=== PATIENT | male | born 1960 | race Caucasian/White ===

== ENCOUNTER 2024-05-25 09:53 | Inpatient (IN) | payer OTHER ==
[2024-05-22 15:04] LABS: BILIRUBIN,URINE NEGATIVE (Neg); CLARITY,URINE CLEAR (Clear); COLOR,URINE STRAW (Yellow); GLUCOSE, URINE NEGATIVE (Neg); KETONES,URINE NEGATIVE (Neg); LEUKOCYTE ESTERASE ,URINE NEGATIVE (Neg); NITRITES, URINE NEGATIVE (Neg); OCCULT BLOOD,URINE NEGATIVE (Neg); PROTEIN,URINE NEGATIVE (Neg); UROBILINOGEN,URINE 0.2 E.U/dL (0.2-1.0)
[2024-05-22 15:05] LABS: UA COLLECTION TYPE CLN CATCH MIDSTREAM
[2024-05-22 15:08] LABS: BASOPHILS % (AUTO) 0.3 % (0-1); EOSINOPHILS # (AUTO) 0.2 X10'3 (0-0.9); EOSINOPHILS % (AUTO) 2.6 % (0-6); HEMATOCRIT 42.2 % (42.0-52.0); LYMPHOCYTES # (AUTO) 1.9 X10'3 (1.1-4.8); LYMPHOCYTES % (AUTO) 31.8 % (21-51); MEAN CORPUSCULAR HGB CONC 33.2 g/dL (33.0-36.5); MEAN CORPUSCULAR VOLUME 90.5 FL (78-98); MEAN PLATELET VOLUME 8.7 FL (7.4-10.4); MONOCYTES # (AUTO) 0.5 X10'3 (0-0.9); MONOCYTES % (AUTO) 8.4 % (2-12); NEUTROPHILS # (AUTO) 3.3 X10'3 (1.8-7.7); NEUTROPHILS % (AUTO) 56.9 % (42-75); PLATELET COUNT 147 X10'3 (140-440); RED BLOOD COUNT 4.67 X10'6 (4.70-6.10); RED CELL DISTRIBUTION WIDTH 13.8 % (11.5-14.5); WHITE BLOOD COUNT 5.9 X10'3 (4.5-11.0)
[2024-05-22 15:17] LABS: ALANINE AMINOTRANSFERASE 19 U/L (12-78); ALBUMIN 3.4 G/DL (3.4-5.0); ALBUMIN/GLOBULIN RATIO 0.9 (1.1-1.5); ALKALINE PHOSPHATASE 68 IU/L (46-116); ANION GAP 4 (8-16); ASPARTATE AMINO TRANSFERASE 13 U/L (10-37); BILIRUBIN,TOTAL 0.4 MG/DL (0.1-1.0); BLOOD UREA NITROGEN 17 MG/DL (7-18); BUN/CREATININE RATIO 19.5 (10.0-20.0); CALCIUM 9.3 MG/DL (8.5-10.1); CHLORIDE 103 MMOL/L (99-107); CREATININE 0.87 MG/DL (0.60-1.10); GLUCOSE 101 MG/DL (70-104); HEMOGLOBIN A1C 5.8 % (4.5-6.2); POTASSIUM 4.1 MMOL/L (3.5-5.1); SODIUM 136 MMOL/L (135-145); TOTAL CARBON DIOXIDE 28.7 MMOL/L (24-32); eGFR 89 ML/MIN
[2024-05-25] VITALS (18 sets, daily range): BP systolic 122–159; BP diastolic 58–100; PULSE 61–78; RESP 12–19; TEMP 97.1–98.3; O2SAT 93–99
[~2024-05-25] VITALS: Ht 177.8 cm; Wt 119.9 kg
[2024-05-25] MEDS: ceFOXitin sod/dextrose 2g/50ml 50 ML IV ONE (05:30)
[~2024-05-25 09:53] MED LIST: ASCO100031 PO; CHOL10006 PO; KRIL500C PO; UBID200C18 PO; [UNRECOGNIZED DRUG - CODE] PO
[2024-05-25] MEDS: famotidine 20mg tablet PO ONE (10:56)
[2024-05-25] MEDS ORDERED: povidone-iodine 120ml topical solution TP ONE (11:00)
[2024-05-25] MEDS: heparin, porcine 5000 units/ml vial SQ ONE (11:04)
[2024-05-25] MEDS: metroNIDAZOLE-Flagyl 500mg/NS 100ML IVPB IV ONE (11:07)
[2024-05-25] MEDS: ringers solution, lacted 1,000 ML IV SCH ×2 (11:09→18:55)
[2024-05-25] MEDS ORDERED: CefTRIAXone 2000mg inj ONE (11:11)
[2024-05-25] MEDS ORDERED: tobramycin 40mg/ml inj ONE (11:11)
[2024-05-25] MEDS ORDERED: LIDOcaine 1% W/epiNEPHrine 1:100,000 20ml vial ONE (11:11)
[2024-05-25] MEDS ORDERED: BUPIVAcaine 2.5mg/ml inj 50ml vial (contains preservative) ONE (11:11)
[2024-05-25] MEDS ORDERED: morphine 2 MG/ML inj. syringe IV PRN (12:55)
[2024-05-25] MEDS ORDERED: hydrALAZINE 20mg/ml inj. IV PRN (12:55)
[2024-05-25] MEDS ORDERED: ondansetron/PF 4mg/2ml inj IV PRN ×2 (12:55→18:50)
[2024-05-25] MEDS ORDERED: meperidine/PF 25mg/ml syringe IV PRN ×3 (12:55)
[2024-05-25] MEDS ORDERED: morphine 4 MG/ML inj SYRINge IV PRN (12:55)
[2024-05-25] MEDS ORDERED: labetalol 20mg/4ml (5mg/ml) syringe IV PRN (12:55)
[2024-05-25] MEDS ORDERED: proCHLORperazine 10 MG/2 ml inj IV PRN (12:55)
[2024-05-25] MEDS ORDERED: midazolam 1 mg/ML 2ml injection ONE (13:27)
[2024-05-25] MEDS ORDERED: sevoflurane 250ml liquid IH ONE (13:28)
[2024-05-25] MEDS ORDERED: fentaNYL /PF 50mcg/ml 5ml ampule ONE (13:31)
[2024-05-25] MEDS: BUPIVAcaine 2.5mg/ml inj 50ml vial (contains preservative) SQ ONE (14:18)
[2024-05-25] MEDS ORDERED: rocuronium 10mg/ml inj IV ONE ×2 (14:36)
[2024-05-25] MEDS ORDERED: ondansetron/PF 4mg/2ml inj ONE (14:36)
[2024-05-25] MEDS ORDERED: LIDOcaine 2% (20mg/ml) 5ml vial ONE (14:37)
[2024-05-25] MEDS ORDERED: propofol inj 20 ML IV ONE (14:37)
[2024-05-25] MEDS ORDERED: fentaNYL/PF 50MCG/1 ML 2ML syringe ONE (15:58)
[2024-05-25] MEDS ORDERED: INDOCYANINE GREEN 25 MG/10 ML VIAL IV ONE (16:23)
[2024-05-25] MEDS ORDERED: meperidine/PF 50mg/ml syringe ONE (17:45)
[2024-05-25] MEDS ORDERED: acetaminophen 1,000mg/100ml IV 100 ML IV ONE (18:08)
[2024-05-25] MEDS ORDERED: naloxone 0.4 mg/ml inj IV PRN (18:50)
[2024-05-25] MEDS: acetaminophen 1,000mg/100ml IV 100 ML IV ONE (18:54)
[2024-05-25] MEDS ORDERED: HYDROmorph/NS 0.2 mg/ml PCA 100 ML IV SCH (19:00)
[2024-05-25] MEDS: HYDROmorph/NS 0.2 mg/ml PCA 100 ML IV SCH (19:33)
[2024-05-25] MEDS: heparin, porcine 5000 units/ml vial SQ SCH (19:45)
[2024-05-25] MEDS: potassium CL 20mEq in D5-1/2NS 1,000 ML IV SCH (21:54)
[2024-05-25] MEDS: normal saline 1000ml 1,000 ML IV SCH (21:54)
[2024-05-25] MEDS: ceFOXitin 1 GM/D5W 50mL IVPB 50 ML IV SCH (22:07)
[2024-05-26] MEDS: metroNIDAZOLE-Flagyl 500mg/NS 100 ML IV SCH (00:25)
[2024-05-26 01:30] VITALS: BP 127/60; PULSE 72; RESP 15; TEMP 97.9; O2SAT 95
[2024-05-26 06:00] VITALS: BP 115/61; PULSE 72; RESP 14; TEMP 98.7; O2SAT 96
[2024-05-26 07:24] LABS: BASOPHILS % (AUTO) 0.1 % (0-1); EOSINOPHILS % (AUTO) 0 % (0-6); HEMATOCRIT 40.2 % (42.0-52.0); HEMOGLOBIN 13.7 g/dl (14.0-17.9); LYMPHOCYTES # (AUTO) 0.5 X10'3 (1.1-4.8); LYMPHOCYTES % (AUTO) 5.9 % (21-51); MEAN CORPUSCULAR HEMOGLOBIN 30.7 PG (27.0-31.0); MEAN CORPUSCULAR HGB CONC 34.1 g/dL (33.0-36.5); MEAN CORPUSCULAR VOLUME 89.9 FL (78-98); MEAN PLATELET VOLUME 8.8 FL (7.4-10.4); MONOCYTES # (AUTO) 0.7 X10'3 (0-0.9); MONOCYTES % (AUTO) 7.8 % (2-12); NEUTROPHILS # (AUTO) 7.2 X10'3 (1.8-7.7); NEUTROPHILS % (AUTO) 86.2 % (42-75); PLATELET COUNT 132 X10'3 (140-440); RED BLOOD COUNT 4.47 X10'6 (4.70-6.10); RED CELL DISTRIBUTION WIDTH 13.7 % (11.5-14.5); WHITE BLOOD COUNT 8.3 X10'3 (4.5-11.0)
[2024-05-26 08:15] LABS: ANION GAP 5 (8-16); BLOOD UREA NITROGEN 10 MG/DL (7-18); BUN/CREATININE RATIO 11.9 (10.0-20.0); CALCIUM 8.5 MG/DL (8.5-10.1); CHLORIDE 103 MMOL/L (99-107); CREATININE 0.84 MG/DL (0.60-1.10); GLUCOSE 172 MG/DL (70-104); POTASSIUM 4.2 MMOL/L (3.5-5.1); SODIUM 136 MMOL/L (135-145); eCRCL 95 ML/MIN; eGFR > 90 ML/MIN
[2024-05-26] MEDS: docusate sod 100mg capsule PO SCH (08:52)
[2024-05-26 10:00] VITALS: BP 115/61; PULSE 72; RESP 14; TEMP 98.7; O2SAT 96
[2024-05-26 17:12] VITALS: BP 126/58; PULSE 72; RESP 14; TEMP 97.9; O2SAT 96
[2024-05-26] MEDS ORDERED: HYDROcodone/acetaminophen 5mg/325mg tablet PO PRN (17:55)
[2024-05-26 18:00] VITALS: BP 116/57; PULSE 71; RESP 16; TEMP 98.7; O2SAT 97
[2024-05-26] MEDS: psyllium seed 5.8 gm packet (sugar-free) PO SCH (21:48)
[2024-05-26 22:00] VITALS: BP 116/59; PULSE 74; RESP 18; TEMP 99.9; O2SAT 95
[2024-05-27] MEDS: PCA waste documentation MC SCH (04:33)
[2024-05-27 06:00] VITALS: BP 136/73; PULSE 73; RESP 18; TEMP 97.9; O2SAT 95
[2024-05-27 07:56] LABS: BASOPHILS % (AUTO) 0.2 % (0-1); EOSINOPHILS % (AUTO) 0.1 % (0-6); HEMATOCRIT 41.8 % (42.0-52.0); HEMOGLOBIN 13.9 g/dl (14.0-17.9); LYMPHOCYTES % (AUTO) 12.8 % (21-51); MEAN CORPUSCULAR HEMOGLOBIN 30.2 PG (27.0-31.0); MEAN CORPUSCULAR HGB CONC 33.3 g/dL (33.0-36.5); MEAN CORPUSCULAR VOLUME 90.6 FL (78-98); MEAN PLATELET VOLUME 8.5 FL (7.4-10.4); MONOCYTES # (AUTO) 0.7 X10'3 (0-0.9); MONOCYTES % (AUTO) 9.3 % (2-12); NEUTROPHILS # (AUTO) 5.8 X10'3 (1.8-7.7); NEUTROPHILS % (AUTO) 77.6 % (42-75); PLATELET COUNT 134 X10'3 (140-440); RED BLOOD COUNT 4.61 X10'6 (4.70-6.10); RED CELL DISTRIBUTION WIDTH 13.9 % (11.5-14.5); WHITE BLOOD COUNT 7.5 X10'3 (4.5-11.0)
[2024-05-27 08:04] LABS: ALBUMIN 3.3 G/DL (3.4-5.0); ANION GAP 3 (8-16); BLOOD UREA NITROGEN 12 MG/DL (7-18); CALCIUM 8.7 MG/DL (8.5-10.1); CHLORIDE 104 MMOL/L (99-107); CREATININE 0.92 MG/DL (0.60-1.10); GLUCOSE 170 MG/DL (70-104); POTASSIUM 4.3 MMOL/L (3.5-5.1); SODIUM 136 MMOL/L (135-145); TOTAL CARBON DIOXIDE 29.5 MMOL/L (24-32); eCRCL 87 ML/MIN; eGFR 84 ML/MIN
[2024-05-27] MEDS ORDERED: psyllium 5.8g sugar-free pkt PO (09:13)
[2024-05-27] MEDS ORDERED: DOCU100C40 PO (09:13)
== END 2024-05-27 10:30 | disposition home or self-care (01) | DRG 331 ==
LOC: PAS IN 09:53 → ORTHO 4S 19:47
PROVIDERS: ADMIT Colon & Rectal Surgery; ATTEND Colon & Rectal Surgery
PROC: 0DTM0ZZ Resection of Descending Colon, Open Approach (ICD-10-PCS; principal; 2024-05-27)
PROC: 0D1L0Z4 Bypass Transverse Colon to Cutaneous, Open Approach (ICD-10-PCS; 2024-05-27)
PROC: 8E0W0CZ Robotic Assisted Procedure of Trunk Region, Open Approach (ICD-10-PCS; 2024-05-27)
DX: C18.6 Malignant neoplasm of descending colon (principal)
CPT/HCPCS: Z7506; Z7508; 36415; 80048; 80053; 81003; 82948; 83036; 85025; 86885; 86900; 86901; 87081; 93005; A4615; A4618; A7000; G0378; J0131; J0694; J0696; J1100; J1171; J1644; J2175; J2250; J2405; J2704; J3010; J3260; J3480; J3490; J7120